=== PATIENT | male | born 1975 | race African-American/Black ===

== ENCOUNTER 2020-06-27 20:10 | Emergency (ER) | payer MEDICAID, OTHER ==
[~2020-06-27] VITALS: Ht 182.9 cm; Wt 90.0 kg
[2020-06-27 20:16] VITALS: BP 137/82
== END 2020-06-27 21:24 | disposition home or self-care (01) ==
LOC: ER 20:10
DX: F43.9 Reaction to severe stress, unspecified (principal); J45.909 Unspecified asthma, uncomplicated; H40.9 Unspecified glaucoma
CPT/HCPCS: 99283